=== PATIENT | female | born 1965 | race Caucasian/White ===

== ENCOUNTER 2019-03-09 09:00 | Observation (INO) | payer BC, OTHER ==
[2019-03-08 15:48] VITALS: Ht 160 cm; Wt 83.2 kg
[~2019-03-09] VITALS: Ht 160 cm; Wt 83.2 kg
[2019-03-09] VITALS (25 sets, daily range): BP systolic 101–168; BP diastolic 73–95; PULSE 76–95; RESP 14–19
[~2019-03-09 09:00] MED LIST: CEFAZOLIN 2 GM/50 ML (PMX) 50 ML IVPB ONE; SOD CHLORIDE 0.9% 1,000 ML IV SCH
--- NOTE | 2019-03-09 12:28 | PREAC ---
Date/Time of Note Date/Time of Note DATE: 03/09/19 TIME: 12:26 Anesthesia Eval and Record Evaluation Time Pre-Procedure Interview DATE: 03/09/19 TIME: 12:26 Age 53 Sex female NPO: 8 hrs Preoperative diagnosis breast cancer Planned procedure left modified radical mastectomy Past Medical History Past Medical History: Includes Cardio: Dyslipidemia Pulm: Asthma Musculoskeletal: Other (breast cancer ) Surgery & Anesthesia Issues No known issue Meds Anticoagulation: No Beta Jean within 24 hr: No Reason Beta Jean not given: Pt. not on B-Jean No Active Prescriptions or Reported Meds Current Medications Sodium Chloride 1,000 ml @ 75 mls/hr [id number] IV Last administered on 03/09/19at 11:08; Admin Dose 75 MLS/HR; Start 03/09/19 at 09:00; Stop 03/09/19 at 22:19 Meds reviewed: Yes Allergies Coded Allergies: No Known Drug Allergies (Verified Allergy, Unknown, 03/09/19) Allergies Reviewed: Yes Labs/Studies Labs Reviewed: Reviewed by anesthesiologist test: N/A Pre-procedure Exam Last vitals Vital Signs Date Temp Pulse Resp B/P (MAP) Pulse Ox O2 O2 Flow FiO2 Time Delivery Rate 03/09/19 98.6 95 16 152/75 96 Room Air 10:42 (100) Airway: Adequate mouth opening, Adequate thyromental dist Mallampati: Mallampati IV Teeth: Normal Lung: Normal Heart: Normal ASA Physical Status ASA physical status: 3 Emergency: None Pre-operative Attestations Prior to commencing anesthesia and surgery, the patient was re-evaluated, there was verification of: *The patient's identity *The results of appropriate recent lab work and preoperative vital signs *The above evaluation not changing prior to induction *Anesthetic plan, risk benefits, alternative and complications discussed with patient/family; questions answered; patient/family understands, accepts and wishes to proceed. ROBYN GONZALES DO Mar 09, 2019 12:28
[2019-03-09] MEDS ORDERED: ONDANSETRON 4 MG INJ IV PRN ×3 (12:30→16:00)
[2019-03-09] MEDS ORDERED: HYDROmorphONE 1 MG/5 ML IV SYRINGE IV PRN ×3 (12:30)
[2019-03-09] MEDS ORDERED: PROPOFOL 20 ML ONE (12:44)
[2019-03-09] MEDS ORDERED: ETOMIDATE 20 MG INJ ONE (12:44)
[2019-03-09] MEDS ORDERED: LIDOCAINE 2% (SDV) 5 ML INJ ONE (12:44)
[2019-03-09] MEDS ORDERED: MIDAZOLAM 1 MG/ML 2 ML INJ ONE (12:44)
[2019-03-09] MEDS ORDERED: DEXAMETHASONE 4 MG/ML 5 ML INJ ONE (12:56)
[2019-03-09] MEDS ORDERED: CEFAZOLIN 1 GM INJ ONE (12:56)
[2019-03-09] MEDS ORDERED: ONDANSETRON 4 MG INJ ONE (12:56)
[2019-03-09] MEDS ORDERED: LABETALOL HCL 20MG INJ ONE (13:39)
--- NOTE | 2019-03-09 14:15 | SIPON ---
Date/Time of Note Date/Time of Note DATE: 03/09/19 TIME: 14:14 Operative Report Preoperative Diagnosis Locally advanced left breast cancer Postoperative Diagnosis Same Operation/Procedure Performed Left modified radical mastectomy Surgeon see signature line production assistant Dr Turner Anesthesia: general Estimated blood loss: 100 - 150 ml's Transfusion Required none Specimen Left breast and axillary contents and additional level 2 lymph node Grafts/Implants none Complications none ZITA BA MD Mar 09, 2019 14:15
[2019-03-09] MEDS ORDERED: ACETAMINOPHEN 1000MG/100ML IV 100 ML IVPB PRN (14:30)
[2019-03-09] MEDS ORDERED: morphine 2 MG INJ IV PRN ×2 (14:30→16:00)
--- NOTE | 2019-03-09 14:43 | PAC ---
Date/Time of Note Date/Time of Note DATE: 03/09/19 TIME: 14:43 Post-Anesthesia Notes Post-Anesthesia Note Last documented vital signs Vital Signs Date Temp Pulse Resp B/P (MAP) Pulse Ox O2 O2 Flow FiO2 Time Delivery Rate 03/09/19 98 80 18 140/65 96 Room Air 1443 Activity: WNL Respiratory function: WNL Cardiovascular function: WNL Mental status: Baseline Pain reasonably controlled: Yes Hydration appropriate: Yes Nausea/Vomiting absent: Yes ROBYN GONZALES DO Mar 09, 2019 14:43
--- NOTE | 2019-03-09 15:49 | HP ---
Date/Time of Note Date/Time of Note DATE: 03/09/19 TIME: 15:46 Assessment/Plan VTE Prophylaxis SCD applied (from Nsg): Yes Pharmacological prophylaxis: NA/contraindicated Pharm contraindication: surgical contra Lines/Catheters IV Catheter Type (from Nrsg): Peripheral IV Assessment/Plan Hospital Course 1. Locally advanced left-sided breast cancer Patient is now status post Left modified radical mastectomy postop day #0 Pain control Monitor overnight with plan to DC tomorrow Prophylaxis: SCDs HPI/ROS Admit Date/Time Admit Date/Time Mar 09, 2019 at 09:00 Hx of Present Illness Patient is a 53-year-old female with history of locally advanced left-sided breast cancer who is now status post Left modified radical mastectomy. Patient denies any other medical history, pain is currently controlled with medications. ROS Constitutional: no complaints, improved Eyes: no complaints ENT: no complaints Respiratory: no complaints Cardiovascular: no complaints Gastrointestinal: no complaints Genitourinary: no complaints Musculoskeletal: no complaints Skin: no complaints Neurologic: no complaints Endocrine: no complaints Lymphatic: no complaints Psychological: no complaints, nl mood/affect Immunologic: no complaints PMH/Family/Social Past Medical History Left sided breast cancer Medications Current Medications Hydromorphone HCl (Dilaudid) 0.2 mg PACU PRN IV MILD PAIN 1-3; Start 03/09/19 at 12:30; Stop 03/09/19 at 16:30 Hydromorphone HCl (Dilaudid) 0.4 mg PACU PRN IV MOD PAIN 4-6 Last administered on 03/09/19at 15:25; Admin Dose 0.4 MG; Start 03/09/19 at 12:30; Stop 03/09/19 at 16:30 Hydromorphone HCl (Dilaudid) 0.6 mg PACU PRN IV SEVERE PAIN 7-10; Start 03/09/19 at 12:30; Stop 03/09/19 at 16:30 Ondansetron HCl (Zofran Inj) 4 mg PACU ORDER PRN IV NAUSEA/VOMITING Last administered on 03/09/19at 15:25; Admin Dose 4 MG; Start 03/09/19 at 12:30; Stop 03/09/19 at 16:30 Ondansetron HCl (Zofran Inj) 4 mg Q6H PRN IV NAUSEA AND/OR VOMITING; Start 03/09/19 at 14:30 Potassium Chloride/Dextrose/ Sod Cl 1,000 ml @ 125 mls/hr Q8H IV ; Start 03/09/19 at 14:15 Morphine Sulfate (morphine) 2 mg Q1H PRN IV PAIN; Start 03/09/19 at 14:30 Acetaminophen 100 ml @ 400 mls/hr Q6H PRN IVPB PAIN; Start 03/09/19 at 14:30; Stop 03/10/19 at 14:29 Coded Allergies: No Known Drug Allergies (Verified Allergy, Unknown, 03/09/19) Family History Significant Family History: no pertinent family hx Social History Alcohol Use: rarely Smoking Status: Never smoker Drug Use: none Exam/Review of Systems Vital Signs Vitals Vital Signs Date Temp Pulse Resp B/P (MAP) Pulse Ox O2 O2 Flow FiO2 Time Delivery Rate 03/09/19 97.7 14:34 03/09/19 Nasal 4.0 14:30 Cannula 03/09/19 95 16 152/75 96 10:42 (100) Exam Constitutional: alert, oriented Respiratory: clear to auscultation Cardiovascular: regular rate and rhythm Gastrointestinal: soft; No distended Musculoskeletal: nl extremities to inspection AGUSTIN LESLIE Mar 09, 2019 15:49
[2019-03-09] MEDS ORDERED: ACETAMINOPHEN 325 MG TAB PO PRN (16:00)
[2019-03-09] MEDS ORDERED: MAGNESIUM HYDROXIDE 30ML CUP PO PRN (16:00)
[2019-03-09] MEDS ORDERED: NACL 0.9% 3 ML SYG IV SCH (16:00)
[2019-03-09] MEDS ORDERED: DOCUSATE SODIUM 100 MG CAP PO PRN (16:00)
--- NOTE | 2019-03-09 16:55 | OPR ---
DATE OF OPERATION: 03/09/2019 PREOPERATIVE DIAGNOSIS: Locally advanced left breast cancer. POSTOPERATIVE DIAGNOSIS: Locally advanced left breast cancer. PROCEDURE: Left modified radical mastectomy. ANESTHESIA: General. ANESTHESIOLOGIST: Joce Alvarez DO SURGEON: David Mercado MD EQUIPMENT VALIDATION SPECIALIST: Dallas Turner MD INDICATIONS FOR PROCEDURE: The patient is a 53-year-old female who presented with a large locally ad vanced left breast cancer. She underwent neoadjuvant chemotherapy with good response; however due to the fact that the tumors were multicentric, the patient understood that she would require to have a mastectomy. She consented and was scheduled for surgery. DESCRIPTION OF PROCEDURE: The patient was brought to the operating theater, placed under general ane sthesia. The left breast and axillary region was prepped and draped in usual sterile fashion. A lar ge elliptical incision was made around the nipple areolar complex including the area where a portion of the necrotic tumor was still penetrating through the skin. The incision was then made with 15-nenita de scalpel. Subcutaneous tissue was dissected with cautery. Skin edges were elevated with Allis Ada ir clamps and skin flaps were created using cautery, first superiorly to the clavicle, then medially to the sternal border, inferiorly to the inframammary fold and laterally until the latissimus dorsi m uscle was identified throughout its course. Mastectomy then took place from medial to lateral using cautery at the border of the pectoralis major muscle, the pectoralis minor muscle was identified. Cl avipectoral fascia was incised and with blunt dissection along the chest wall, the long thoracic nerv e was identified and kept out of harm's way. More superiorly, the axillary vein was identified, diss ected from medial to lateral. The thoracodorsal neurovascular bundle was identified, dissected throu ghout its course and kept out of harm's way. Level 1 and level 2 lymph nodes were meticulously disse cted using a combination of the LigaSure device and cautery. Final connective tissue attachments to latissimus dorsi muscle were then transected with cautery. Specimen was removed, oriented and sent f or permanent pathologic analysis. Dr. Mercado inspected the axilla. There was a small firm node in th e high level 2 location. This node was resected and sent separately for pathologic analysis. The wo und cavity was then irrigated. Minimal bleeding was controlled with cautery. Two #10 flat Dmitriy-P ratt drains were then brought through the left mid axillary line. One was cut to size and laid withi n the axilla. The other was cut to size and laid over the pectoralis major muscle. Both drains were then secured in place with 2-0 nylon sutures in a standard fashion. The skin was then reapproximate d with skin salvatore. The patient tolerated procedure well. Estimated blood loss was approximately 1 50 mL. There were no complications and the patient was transported in stable condition to the [facility] room. Dictated By: DAVID MERCADO MD TL/MAO Conf#: [id number] DID#: [id number] CC: MILENA ALCOCER MD;*End*
[2019-03-09] MEDS: D5W-0.45 NACL + KCL 20 MEQ 1,000 ML IV SCH (17:20)
[2019-03-09] MEDS: HYDROCODONE/APAP (5/325) TAB PO PRN (19:37)
[2019-03-10 00:16] VITALS: BP 110/67; PULSE 97; RESP 18
[2019-03-10] MEDS: D5W-0.45 NACL + KCL 20 MEQ 1,000 ML IV SCH ×2 (00:49→06:09)
[2019-03-10] MEDS: HYDROCODONE/APAP (5/325) TAB PO PRN (06:09)
[2019-03-10 08:33] VITALS: BP 127/72; PULSE 91; RESP 18
--- NOTE | 2019-03-10 12:42 | PDOCDIS ---
Discharge Instructions CONDITION [id number] Patient Condition: [id number] Good HOME CARE INSTRUCTIONS: [id number] Diet Instructions: [id number] Regular ACTIVITY: [id number] Activity Restrictions: Nduig7m Slowly Increase Activity Rest between Activity Avoid heavy lifting Do not Drive Avoid Heavy Housework [id number] Bathing Restrictions: [id number] Sponge Bath FOLLOW UP/APPOINTMENTS Follow-up Plan FOLLOW UP WITH YOUR PCP AND ONCOLOGIST WELL AGUSTIN KRAFT Mar 10, 2019 12:42
[2019-03-10 14:06] VITALS: BP 115/57; PULSE 96; RESP 18
--- NOTE | 2019-03-10 16:33 | DS ---
Date/Time of Note Date/Time of Note DATE: 03/10/19 TIME: 16:32 Discharge Summary Admission/Discharge Info Admit Date/Time Mar 09, 2019 at 09:00 Discharge Date/Time Mar 10, 2019 at 16:00 Discharge Diagnosis 1. Locally advanced left-sided breast cancer Patient is now status post Left modified radical mastectomy postop day #1 Pain control Follow-up with surgery and oncology as outpatient Patient Condition: Good Hospital Course Patient is a 53-year-old female with history of locally advanced left-sided breast cancer who is now status post Left modified radical mastectomy. Patient was cleared for DC per surgery, patient to follow-up with surgery and oncology as an outpatient. On the day of discharge patient's vitals, labs and physical exam are stable. Patient was given a prescription for [place] upon DC. Home Meds No Active Prescriptions or Reported Meds Follow-up Plan FOLLOW UP WITH YOUR PCP AND ONCOLOGIST WELL DR BA Primary Care Provider Not On Staff Doctor Time spent on discharge: > 30 minutes AGUSTIN LESLIE Mar 10, 2019 16:33
--- NOTE | 2019-03-10 19:46 | PN ---
DATE: 03/10/2019 Postop day #1 status post left breast modified radical mastectomy for cancer of the left breast. SUBJECTIVE: No specific complaint. Has been out of bed and walk around. No nausea. No vomiting. Tolerating diet. OBJECTIVE: GENERAL: Alert, awake, oriented. VITAL SIGNS: Temperature maximum 98.7, heart rate 96, respirations 18, blood pressure 115/57, satura tion 99%. HEART: Regular. LUNGS: Clear. ABDOMEN: Soft. LABORATORY DATA: Sodium, potassium, BUN, creatinine within normal limits. Hematology: WBC 9000 wit h 83% segmented, hemoglobin 10.6, hematocrit 33.6, platelet count 277. INPUTS AND OUTPUTS: The patient has 2 Dmitriy-Grove drains in past 24 hours from the time of the ope ration until today 7:00 in the morning. Totally, they have drained 270 mL of serosanguineous fluid. Right now in the tubing, there is serosanguineous fluid more serous than sanguineous. Dressing is i ntact. ASSESSMENT: A 53-year-old patient status post neoadjuvant chemotherapy and status post left modified radical mastectomy with axillary dissection. The patient has been stable. Pain is under control. Dmitriy-Grove drain has no bleeding, only serosanguineous fluid; therefore, the patient can be disc harged home today, to be followed by Dr. Mercado in the office. The patient's family is to call and ma ke an appointment. Pain medication will be given by the medical service. Dictated By: GENARO CRUZ MD PS/NTS Conf#: [id number] DID#: [id number] CC: ZITA MERCADO MD; MILENA ALCOCER MD;*EndCC*
== END 2019-03-10 16:00 | disposition home or self-care (01) ==
LOC: INTOOBSV 09:00 → REC 09:00 → MS1 15:54
PROVIDERS: ADMIT Surgery Surgical Oncology; ATTEND Surgery Surgical Oncology
DX: C50.812 Malignant neoplasm of overlapping sites of left female breast (principal); Z17.1 Estrogen receptor negative status [ER-]; J45.909 Unspecified asthma, uncomplicated
CPT/HCPCS: 19307; 80048; 82962; 83036; 83735; 84100; 85025; 88307; 88309; J0690; J1100; J1170; J2250; J2405; J3010; J3480; J7030; Z7500; Z7512; Z7610; 99217; G0378